=== PATIENT | male | born 1965 | race Caucasian/White ===

== ENCOUNTER 2017-05-29 08:43 | Day surgery (SDC) | payer MEDICARE, MEDICAID ==
[2014-11-11 16:45] VITALS: BMI 28.1
--- NOTE | 2017-05-29 09:27 | CP.SDSHP ---
Same Day Surgery H & P - History Proposed Procedure: Colonoscopy Pre-Op Diagnosis: Personal history of colon polyps (villous adenoma) - Previous Medical/Surgical History Pulmonary: Asthma Comments: Rheumatoid arthritis, fibromyalgia, anxiety Previous Surgical History: Bilateral inguinal hernia repair - Allergies Allergies: Allergies No Known Allergies Allergy (Verified 11/11/14 16:42) - Current Medications Current Medications: See reconciliation sheet - Physical Exam General Appearance: WD WN male in NAD Vital Signs: Vital Signs 05/29/17 09:06 Temperature 98 F Pulse Rate 60 Respiratory 19 Rate Blood Pressure 133/65 O2 Sat by Pulse 97 Oximetry Mental Status: Alert & Oriented x3 Neuro: WNL Heart: WNL Lungs: WNL GI: WNL - {Optional Preform as Required} Abdomen: WNL - Impression Impression: High risk screening; Personal history of colon polyps (villous adenoma) Pt. Evaluated Today:Candidate for Anesthesia & Procedure: Yes - Date & Time Date: 05/29/17 Time: :29 Short Stay Discharge - Short Stay Discharge Admitting Diagnosis/Reason for Visit: P/H COLON POLYPS Disposition: HOME/ ROUTINE
[2017-05-29] MEDS ORDERED: Propofol 10 mg/ml Inj (20 ML) ONE (09:34)
[2017-05-29 10:08] VITALS: TEMP 98.4
[2017-05-29 10:44] VITALS: RESP 14; O2SAT 100
[2017-05-29 12:05] VITALS: BP 111/70; PULSE 64
== END 2017-05-29 12:05 | disposition home or self-care (01) ==
LOC: C.ENDO 08:43
PROVIDERS: ATTEND Internal Medicine Gastroenterology
DX: Z12.11 Encounter for screening for malignant neoplasm of colon (principal); Z86.010 Personal history of colon polyps; J45.909 Unspecified asthma, uncomplicated; M79.7 Fibromyalgia; F41.9 Anxiety disorder, unspecified; M06.9 Rheumatoid arthritis, unspecified; K64.0 First degree hemorrhoids; K57.30 Diverticulosis of large intestine without perforation or abscess without bleeding
CPT/HCPCS: 45378; J2001; J2704